=== PATIENT | female | born 1950 | race Caucasian/White ===

== ENCOUNTER 2016-10-27 11:01 | Outpatient (CLI) | payer BC ==
[2013-07-13 09:28] VITALS: BP 112/82
--- NOTE | 2016-10-27 14:11 | Diagnostic Imaging Report ---
[facility] [address] [facility].[address] [address] Report Submission Date: Oct 27, 2016 12:04:23 PM CHAIRMAN EMERITUS Patient Study Name: MARIO BENJAMIN Date: Oct 27, 2016 11:22:06 AM CHAIRMAN EMERITUS Modality Type: CR Gender: F Description: CHEST : 52 Institution: [facility] [place] Physician ALEXA HANSEN - OP Chest 2 views The exam: October 27, 2016. Clinical history: COPD, asthma, shortness of breath and wheezing. Findings: Comparison with June 25, 2015 again demonstrates chronic emphysematous lung parenchymal changes. There is no evidence of acute infiltrate or effusion. The trachea is midline and the aortic arch contour is normal. The pulmonary vascularity is stable. A left-sided pacemaker is again noted with a single lead in the right heart. There are degenerative changes of the bilateral shoulders. Impression: Chronic emphysematous lung changes without evidence of acute infiltrate or effusion. Electronically signed on Oct 27, 2016 12:04:23 PM CHAIRMAN EMERITUS by: Sierra RODRIGUEZ
== END 2016-10-27 11:03 ==
LOC: RAD 11:01
PROVIDERS: ATTEND Family Medicine
DX: J44.9 Chronic obstructive pulmonary disease, unspecified (principal)
CPT/HCPCS: 71020

== ENCOUNTER 2017-06-09 16:33 | Emergency (ER) | payer BC ==
[2013-07-13 09:28] VITALS: BP 112/82
[2017-06-09] MEDS ORDERED: 0.9 % SODIUM CHLORIDE 250 ML IV ONE (16:48)
[2017-06-09 16:55] LABS: BASOPHILS % 0.8 (0.0-1.5); EOSINOPHILS % 11.8 % (0.0-6.8); MEAN CORPUSCULAR HEMOGLOBIN 31.1 pg (28.0-34.0); MONOCYTES % 6.6 % (0.0-11.0); NEUTROPHILS # 5.7 # k/uL (1.4-7.7)
[2017-06-09 17:07] LABS: eGFR (African) > 60; eGFR (Non-African) > 60
[2017-06-09] MEDS ORDERED: DOPAMINE HCL/D5W 400 MG/250 ML BAG IV ONE (17:48)
[2017-06-09] MEDS ORDERED: 0.9 % SODIUM CHLORIDE 1,000 ML IV ONE ×2 (17:49→23:21)
[2017-06-09 18:09] LABS: APPEARANCE,URINE Clear (CLEAR); COLOR,URINE Yellow (YELLOW); OCCULT BLOOD,URINE 2+ (NEGATIVE); PH URINE 8.5 (5.0 - 8.0); UROBILINOGEN URINE 0.2 Eu (0.2-1.0)
[2017-06-09 18:15] LABS: AMORPHOUS SEDIMENT,UR FEW (NEGATIVE)
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
[2017-06-09] MEDS ORDERED: SODIUM BICARBONATE 50 MEQ/50 ML SYRINGE ONE (20:39)
[2017-06-09] MEDS ORDERED: EPINEPHrine 0.1 MG/ML DISP.SYRIN IVP ONE (20:39)
--- NOTE | 2017-06-09 21:12 | Diagnostic Imaging Report ---
ARMANDO COSTA (ABHISHEK) - ER [facility] [address] [facility] [address] [place], [place]. [address] Report Submission Date: Jun 09, 2017 6:10:43 PM CDT Patient Study Name: MARIO BENJAMIN Date: Jun 09, 2017 5:43:18 PM CDT Modality Type: CT\SR Gender: F Description: CT BRAIN W/O CONTRAST : 52 Institution: [facility] Physician: ARMANDO COSTA) - ER Examination: CT head without contrast History: Decrease mentation. Comparison exam: None available Technique: Noncontrast head CT protocol. Findings: Ventricles and sulci are consistent for patient age. Cerebrocerebellar parenchyma demonstrates periventricular low attenuation consistent with small vessel disease. No evidence for parenchymal hemorrhage. No evidence for mass or mass effect. No midline shift. No extra axial fluid collections. Partial visualization of the paranasal sinuses, mastoid air cells, orbits, skull and scalp without gross regularity. Endotracheal tube identified. Impression: Age related changes. No acute parenchymal process. No hemorrhage. Electronically signed on Jun 09, 2017 6:10:43 PM CDT by: Constantino Mike [facility] HOSPITALJosé Luis
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
--- NOTE | 2017-06-09 21:14 | Diagnostic Imaging Report ---
ARMANDO COSTA (TURRET LATHE OPERATOR) - ER [facility] [address] [facility] [address] [place], [place]. [address] Report Submission Date: Jun 09, 2017 5:25:06 PM CDT Patient Study Name: MARIO BENJAMIN Date: Jun 09, 2017 4:58:44 PM CDT Modality Type: CR Gender: F Description: CHEST : 52 Institution: [facility] Physician: ARMANDO COSTA (ABHISHEK) - ER Examination: Portable chest History: Chest discomfort Comparison exam: 27 October 2016 Findings: Single view of the chest demonstrates normal cardiac size. Left-sided cardiac pacemaker. Upper central thoracic defibrillating pad shadow. Lungs without focal infiltrative process. Stable haziness involving the right hilum to prior study. No blunting of the costophrenic margins. Impression: No acute pulmonary process. Electronically signed on Jun 09, 2017 5:25:06 PM CDT by: Constantino RODRIGUEZ
[2017-06-09] MEDS ORDERED: PHARMACY KEY 1 EACH EACH MC ONE (21:21)
[2017-06-09] MEDS ORDERED: LACTATED RINGERS 1,000 ML IV ONE (23:21)
== END 2017-06-09 17:53 | disposition short-term general hospital (02) ==
LOC: ED 16:33
DX: I45.5 Other specified heart block (principal)
CPT/HCPCS: 51702; 70450; 71010; 72125; 80053; 81002; 82553; 83880; 84484; 85025; 85379; 93005; J0171; J1265; J7030; J7050; J7120; 96361; 96374; 96375; 99285